=== PATIENT | female | born 1970 | race Caucasian/White ===

== ENCOUNTER → 2020-08-04 09:54 | Outpatient (BNVA) | payer OTHER, SELFPAY | PROVIDERS: PCP Internal Medicine; Visit Provider Student in an Organized Health Care Education/Training Program | DX: Z76.89 Persons encountering health services in other specified circumstances (principal) ==

== ENCOUNTER 2025-08-04 08:56 | Outpatient (AMB) | payer OTHER, SELFPAY ==
--- NOTE | 2025-08-04 08:57 | A.OFFVIS_ITS ---
Vital Signs 08/04/25 09:09 BP 122/60 Position Sitting Pulse 70 Intake Visit Reasons: 6m migraine Allergies ibuprofen (From Motrin) Allergy (Intermediate, Verified 08/04/25 08:57) Hives, Rash Iodinated Contrast Media (IV CONTRAST) Allergy (Intermediate, Verified 08/04/25 08:57) rash latex (LATEX) Allergy (Intermediate, Verified 08/04/25 08:57) Rash Medication List - Last Reconciled 08/04/25 by Maria Ines Ray CNP aspirin 81 mg PO DAILY cetirizine 10 mg PO DAILY cholecalciferol (vitamin D3) 100 mcg PO DAILY diclofenac sodium 1% topical QID escitalopram oxalate 10 mg PO DAILY fluticasone furoate-vilanterol 100-25 mcg/dose (Breo Ellipta) 1 ea inhalation DAILY hydroxychloroquine 200 mg PO DAILY hydroxyzine pamoate 25 mg PO BID PRN lorazepam 1 mg PO DAILY PRN oxycodone mg PO pantoprazole 40 mg PO DAILY propranolol 20 mg PO BID 90 days rizatriptan take 1 tab at onset of headache; if no relief may repeat 1 tab after at least 4 hrs; max = 2 tabs/24 hr PO 30 days rosuvastatin 10 mg PO DAILY HPI Comments Details: 55-year-old RH woman with obesity, RA and OA, ODETTE not using CPAP, asthma, bilateral CTS s/p surgery, and migraine headaches. She was doing okay. Migraines were okay, happening about 3-4x/month. Rizatriptan as needed helped. She wanted to stop propranolol as this was a blood pressure medication and she did not have any problems with blood pressure. She noted some weight gain which she thought may be related to medication. She wanted medication that was only for migraines. [facility] Medical History (Updated 08/04/25 @ 09:00 by Maria Ines Ray CNP) Cerebral microvascular disease Carpal tunnel syndrome RLS (restless legs syndrome) Migraine Seropositive rheumatoid arthritis Social History (Updated 08/04/20 @ 09:59 by Corinna Hernandez CMA) Alcohol intake: never Review of Systems Const Denies chills, Denies daytime sleepiness, Denies difficulty sleeping, Denies fatigue, Denies fever(s), Denies frequent falls, Reports headache(s), Denies increased appetite, Denies poor appetite, Denies snoring, Denies weakness, Denies weight gain and Denies weight loss Eyes Denies loss of vision ENT Denies vertigo, Denies dizziness and Reports headache(s) Card Denies chest pain at rest, Denies chest pain with activity, Denies syncope, Reports leg edema and Denies palpitations Resp Denies snoring GI Denies constipation, Denies heartburn, Denies diarrhea and Denies nausea Denies urinary frequency, Denies urinary incontinence and Denies urinary urgency Musc Denies abnormal gait, Denies numbness and Denies tingling Skin/Breast Denies dry skin and Denies rash Neuro Denies abnormal gait, Denies vertigo, Denies dizziness, Denies syncope, Denies frequent falls, Reports headache(s), Denies lack of coordination, Denies loss of vision, Denies memory loss, Denies numbness, Denies restless legs, Denies seizure-like activity, Denies tingling, Denies paresthesias, Denies tremor(s) and Denies weakness Psych Denies anxiety, Denies depression, Denies auditory hallucinations, Denies memory loss, Denies visual hallucinations and Denies suicidal ideation Endo Denies fatigue and Denies palpitations Physical Exam Const Other: General Appearance:? normal, in no acute distress. Skin:? no rashes, no significant birthmarks. Heart:? S1, S2 normal, no murmurs. Lungs:? clear anteriorly and posteriorly. Extremities:? no edema. Psych:? alert, oriented, cognitive function intact, cooperative with exam. Neuro Other: Mental Status:?Normal attention, orientation, memory and affect.? Cranial Nerves:?Pupils are equal, round and reactive to light. External occular muscles are intact. Visual archer are full. Face is symmetrical. Facial sensations are normal. Tongue is midline. Palate elevates symmetrically. Shoulder shrugging is normal. Hearing to bedside conversation is normal. Sensory Exam:?....? Coordination:?No ataxia,?no titubation.? Gait Exam: Within normal limits. Extrapyramidal System:?No tremor, rigidity with normal facial expressions.? Pronator Drift:?Not present.? Involuntary Movements:?No tremors seen.? Speech:?Normal.? Results Reviewed Results Reviewed: NCV/EMG LE 10/10/20: No significant abnormality to suggest large fiber neuropathy. 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 She was concerned propranolol may be contributing to weight gain, and she was interested in medication that was for migraines specifically. She was educated that many medications used for migraine prophylaxis are used f or the treatment of other conditions as well (ex: Depakote - AED, verapamil - CCB, amitriptyline - TCA). Given that migraines are happening only few times a month, she would not qualify for treatment with CGRP inhibitor. Discussed treatment options, including trying other migraine prophylactic medication (such as verapamil or Depakote - but like propranolol, has other indications/uses outside of migraine treatment, side effects of medications reviewed). Stop propranolol - taper reviewed, will hold off on starting preventive at this time and will consider in the future if migraines increase. Continue rizatriptan 10mg 1 tablet as needed for migraine. Follow up in 3 months or sooner as needed. Plan Meds tried: topamax, propranalol, amitriptyline Medications: Refilled rizatriptan take 1 tab at onset of headache; if no relief may repeat 1 tab after at least 4 hrs; max = 2 tabs/24 hr PO 10 tabs 5RF 30 days Discontinued propranolol Discontinued Reason: Doctor's Order 20 mg PO BID 90 days 180 tabs 0RF Coding Level of Care Code Est Pt Level 4 (94334) Diagnoses Migraine without status migrainosus, not intractable, unspecified migraine type G43.909 Migraine type: unspecified Status migrainosus presence: without status migrainosus Intractability: not intractable
[2025-08-04 09:09] VITALS: BP 122/60; PULSE 70
== END 2025-08-04 09:13 | disposition home or self-care (01) ==
LOC: HO.HSM 08:57
PROVIDERS: PCP Internal Medicine; Referring Provider Internal Medicine; Visit Provider Registered Nurse
DX: G43.909 Migraine, unspecified, not intractable, without status migrainosus (principal)
CPT/HCPCS: 99214

== ENCOUNTER → 2025-08-04 08:56 | Outpatient (BNVA) | payer OTHER, SELFPAY | PROVIDERS: PCP Internal Medicine; Referring Provider Internal Medicine; Visit Provider Registered Nurse | DX: G43.909 Migraine, unspecified, not intractable, without status migrainosus (principal); Z79.899 Other long term (current) drug therapy | CPT/HCPCS: 99212 ==